=== PATIENT | female | born 1930 | race Caucasian/White ===

== ENCOUNTER 2018-05-02 07:18 | Day surgery (SDC) | payer OTHER ==
[2016-10-05 13:08] VITALS: BMI 25.2
[2018-05-02 07:56] VITALS: O2SAT 100
--- NOTE | 2018-05-02 08:36 | CP.SDSHP ---
Same Day Surgery H & P - History Proposed Procedure: colonoscopy Pre-Op Diagnosis: diverticulitis. persistent abdominal pain. constipation - Previous Medical/Surgical History Cardiac: Hypertension Endocrine/Metabolic: Thyroid Disease Neuro: Headaches Misc: Other (Vertigo, DJD, diverticulosis) Pain: 2.Mild Pain Previous Surgical History: GB. WENDY/BSO. Umbilical hernia - Allergies Allergies: Allergies iron Allergy (Verified 10/05/16 13:22) - Physical Exam Vital Signs: Vital Signs 05/02/18 07:47 Temperature 97.3 F L Pulse Rate 59 L Respiratory 19 Rate Blood Pressure 144/59 L O2 Sat by Pulse 100 Oximetry Mental Status: Alert & Oriented x3 Neuro: WNL Heart: WNL Lungs: WNL GI: WNL - Impression Impression: diverticulitis. persistent abdominal pain. constipation Pt. Evaluated Today:Candidate for Anesthesia & Procedure: Yes - Date & Time Date: 05/02/18 Time: 08:36 Short Stay Discharge - Short Stay Discharge Admitting Diagnosis/Reason for Visit: LEFT LOWER QUARDENT, CHANGE IN BOWEL HABITS, DIVER Disposition: HOME/ ROUTINE
[2018-05-02] MEDS ORDERED: Propofol 10 mg/ml Inj (20 ML) ONE (08:59)
[2018-05-02 09:18] VITALS: TEMP 96
[2018-05-02 10:44] VITALS: BP 139/52; PULSE 52; RESP 12
== END 2018-05-02 10:20 | disposition home or self-care (01) ==
LOC: C.ENDO 07:18
PROVIDERS: ATTEND Internal Medicine Gastroenterology
DX: R10.32 Left lower quadrant pain (principal); R19.4 Change in bowel habit; K57.30 Diverticulosis of large intestine without perforation or abscess without bleeding; K64.8 Other hemorrhoids
CPT/HCPCS: 45378; J2704

== ENCOUNTER 2018-05-10 17:12 | Emergency (ER) | payer OTHER ==
[2018-05-10 17:19] VITALS: BMI 22.8
[2018-05-10 17:23] VITALS: RESP 18; TEMP 97.6
--- NOTE | 2018-05-10 17:35 | C.PDOC ---
History Of Present Illness 87-year-old female presents to the ED complaining of 1 week history of rash surrounding her neck. Patient believes rash was initially triggered by bathing with a specific shampoo, which was very old. She tried applying Sarna solution and notes the rash has worsened, and is now itchy and burning. Otherwise patient denies any fever, chills, nausea, vomiting, SOB, throat or lip swelling. Time Seen by Provider: 05/10/18 17:25 Chief Complaint (Nursing): Abnormal Skin Integrity History Per: Patient History/Exam Limitations: no limitations Onset/Duration Of Symptoms: Days Current Symptoms Are (Timing): Worse Location Of Injury: Anterior: Neck Quality Of Symptoms: Painful, Itching Past Medical History Reviewed: Historical Data, Nursing Documentation, Vital Signs Vital Signs: Last Vital Signs Temp 97.6 F 05/10/18 17:19 Pulse 77 05/10/18 18:01 Resp 18 05/10/18 18:01 BP 152/82 H 05/10/18 18:01 Pulse Ox 96 05/10/18 18:01 - Medical History PMH: Depression, Diverticulitis, Gall Bladder Disease (gallbladder surgery), HTN , Hypercholesterolemia, Hypothyroidism, Osteoporosis Denies: Chronic Kidney Disease Surgical History: Cholecystectomy, Endoscopy - [facility] Procedures VACCINATION NEC (12/09/13) Family History: States: Unknown Family Hx - Social History Hx Tobacco Use: No Hx Alcohol Use: No Hx Substance Use: No - Immunization History Hx Tetanus Toxoid Vaccination: No Hx Influenza Vaccination: No Hx Pneumococcal Vaccination: No Review Of Systems Constitutional: Negative for: Fever, Chills ENT: Negative for: Mouth Swelling, Throat Swelling Respiratory: Negative for: Shortness of Breath Skin: Positive for: Rash (to anterior neck) Physical Exam - Physical Exam Appears: Well, Non-toxic, No Acute Distress Skin: Warm, Rash (Bright erythematous, blanching, macular rash around the anterior neck; no vesicles) Head: Atraumatic, Normacephalic Eye(s): bilateral: Normal Inspection Oral Mucosa: Moist Neck: Normal ROM Chest: Symmetrical Cardiovascular: Rhythm Regular Respiratory: Normal Breath Sounds, No Wheezing Extremity: Bilateral: Atraumatic, Normal ROM Pulses: Left Radial: Normal, Right Radial: Normal Neurological/Psych: Oriented x3, Normal Speech Gait: Steady ED Course And Treatment O2 Sat by Pulse Oximetry: 97 (RA) Pulse Ox Interpretation: Normal Medical Decision Making Medical Decision Making: Impression: contact dermatitis no signs of cellulitis Plan: * Benadryl 25 mg PO Updates/Dispo: Advised patient to discontinue use of Sarna cream. Educated regarding diagnosis and treatment plan. Patient will be discharged home with prescriptions for Benadryl and Cortizone cream. Disposition Counseled Patient/Family Regarding: Need For Followup, Rx Given - Disposition Referrals: Arnaldo Powell MD, PhD [Staff Provider] - Disposition: HOME/ ROUTINE Disposition Time: 17:35 Condition: STABLE Additional Instructions: Rx enviado a la farmacia [facility] [place] Benadryl 1-2 pastillas cada 6 horas para picazn y sarpullido Aplique crema al narayan dos veces al da angi juan semana Faraz un seguimiento con bain mdico Prescriptions: DiphenhydrAMINE [Benadryl] 25 mg PO Q4 PRN #30 cap PRN Reason: Rash Hydrocortisone 1% Cream [Cortizone 1% Cream] 1 cre TP BID #1 tube Instructions: Contact Dermatitis (DC) Forms: [employer] (Djiboutian) Print Language: PU[place] RICAN - Clinical Impression Clinical Impression: Contact dermatitis - PA / IN HOME CAREGIVER / Resident Statement MD/DO has reviewed & agrees with the documentation as recorded. - Scribe Statement The provider has reviewed the documentation as recorded by the Scribe (Alexandria Lima) All medical record entries made by the Scribe were at my direction and personally dictated by me. I have reviewed the chart and agree that the record accurately reflects my personal performance of the history, physical exam, medical decision making, and the department course for this patient. I have also personally directed, reviewed, and agree with the discharge instructions and disposition.
[2018-05-10 18:10] VITALS: BP 152/82; PULSE 77
[2018-05-10 20:47] VITALS: O2SAT 97
== END 2018-05-10 18:10 | disposition home or self-care (01) ==
LOC: C.ER 17:12
DX: L25.9 Unspecified contact dermatitis, unspecified cause (principal)